=== PATIENT | male | born 1985 | race Caucasian/White ===

== ENCOUNTER 2019-12-20 05:41 | Emergency (ER) | payer OTHER ==
[~2019-12-20] VITALS: Ht 172.7 cm; Wt 108.9 kg
[2019-12-20] MEDS ORDERED: SEROQUEL 100 M100 M1 PO (05:46)
[2019-12-20] MEDS ORDERED: XANAX1 MG PO (05:47)
[2019-12-20] MEDS ORDERED: PERCOCET 7.5-31 EAC1 PO (05:47)
[2019-12-20 06:00] LABS: ABSOLUTE BASOPHILS 0.1 thou/uL (0.0-0.2); ABSOLUTE EOSINOPHILS 0.1 thou/uL (0.0-0.7); ABSOLUTE LYMPHOCYTES 2.7 thou/uL (0.8-5.3); ABSOLUTE MONOCYTES 0.5 thou/uL (0.0-1.2); ABSOLUTE NEUTROPHILS 2.7 thou/uL (1.6-8.1); BASOPHILS 1.2 %; EOSINOPHILS 1.5 %; HEMATOCRIT 45.3 % (42.0-52.0); HEMOGLOBIN 15.5 gm/dL (14.0-18.0); LYMPHOCYTES 44.9 %; MCH 30.2 pg (26.0-34.0); MCHC 34.3 g/dL (28.0-37.0); MONOCYTES 8.7 %; MPV 6.2 fl. (7.2-11.1); NUCLEATED RBCS 0 /100WBC; PLATELET COUNT* 319 thou/uL (150-400); POLYS 43.7 %; RBC 5.15 mil/uL (4.50-6.00); RDW-CV 13.6 % (10.5-14.5); WBC 6.1 thou/uL (4.0-11.0)
[2019-12-20 06:10] LABS: CALCIUM 7.8 mg/dL (8.5-10.1); POTASSIUM 3.8 mmol/L (3.5-5.1)
[2019-12-20 06:12] LABS: APTT 27.7 Seconds (25.0-31.3); PROTIME 10.6 Seconds (9.20-11.50)
[2019-12-20 06:15] LABS: ALBUMIN 3.9 g/dL (3.4-5.0); TOTAL BILIRUBIN 0.3 mg/dL (<0.1-1.0); TOTAL PROTEIN 7.7 g/dL (6.4-8.2)
[2019-12-20] MEDS ORDERED: NORCO 5-325 TA1 EAC2 PO (07:41)
[2019-12-20 08:27] VITALS: BP 155/103
== END 2019-12-20 08:28 | disposition short-term general hospital (02) ==
LOC: M.ERS 05:41
PROVIDERS: Personal Emergency Response Attendant
DX: S02.81XA Fracture of other specified skull and facial bones, right side, initial encounter for closed fracture (principal); S01.81XA Laceration without foreign body of other part of head, initial encounter; F10.920 Alcohol use, unspecified with intoxication, uncomplicated; M54.5 Low back pain; R10.84 Generalized abdominal pain; Z79.899 Other long term (current) drug therapy; Z88.6 Allergy status to analgesic agent; V49.59XA Passenger injured in collision with other motor vehicles in traffic accident, initial encounter; Y93.89 Activity, other specified; Y92.413 State road as the place of occurrence of the external cause; Y99.9 Unspecified external cause status; Y90.9 Presence of alcohol in blood, level not specified

== ENCOUNTER 2020-01-22 18:30 | Emergency (ER) | payer OTHER ==
[~2020-01-22] VITALS: Ht 175.3 cm; Wt 104.3 kg
[~2020-01-22 18:30] MED LIST: NORCO 5-325 TA1 EAC2 PO; PERCOCET 7.5-31 EAC1 PO; SEROQUEL 100 M100 M1 PO; XANAX1 MG PO
[2020-01-22] MEDS ORDERED: PREDNISONE 10 M10 MG PO (18:59)
[2020-01-22] MEDS ORDERED: INDOMETHACIN 5050 M1 PO (18:59)
[2020-01-22] MEDS ORDERED: PERCOCET PO (18:59)
[2020-01-22 19:08] VITALS: BP 143/85
== END 2020-01-22 19:09 | disposition home or self-care (01) ==
LOC: M.ERS 18:30
DX: M10.071 Idiopathic gout, right ankle and foot (principal); R60.0 Localized edema; Z88.6 Allergy status to analgesic agent